=== PATIENT | male | born 1940 | race Caucasian/White ===

== ENCOUNTER 2016-06-23 08:54 | Day surgery (SDC) | payer OTHER, MEDICARE ==
[2016-06-23] MEDS ORDERED: LIDOCAINE 1% 5 ML SDV ONE (09:19)
[2016-06-23] MEDS ORDERED: LIDOCAINE 2% 5 ML SDV ONE (10:17)
[2016-06-23] MEDS ORDERED: PROPOFOL/EMULSION 500 MG/50 ML BOTTLE IV ONE (10:17)
--- NOTE | 2016-06-23 11:29 | GPN ---
[f rep st] PROCEDURE NOTE PREPROCEDURE DIAGNOSIS: Need for screening colonoscopy. POSTPROCEDURE DIAGNOSIS: 1. Mild to moderate left-sided diverticulosis. 2. Colon polyps, status post removal. PROCEDURES: Colonoscopy with biopsies. MEDICATIONS: Monitored anesthesia care. INDICATIONS: The patient is a 76-year-old gentleman with a history of aortic stenosis and pacemaker , who presents for a colonoscopy for screening purposes. His last colonoscopy was 20 years ago. Th e risks and benefits of the procedure were discussed with the patient and consent obtained. Risks i nclude, but not limited to, bleeding, perforation, risks associated with sedation. The patient is A SA class 3. DESCRIPTION OF PROCEDURE: The pediatric colonoscope was advanced into the terminal ileum, which cynthia eared normal. The ileocecal valve, cecum, ascending colon, hepatic flexure, transverse colon, splen ic flexure appeared normal. There was mild to moderate diverticulosis in the descending colon and s igmoid colon. There was a 2 mm polyp in the descending colon, which was removed using cold biopsy f orceps and sent to pathology. The rectum shows a 2 mm polyp, which was also removed using cold biop sy forceps and sent off to pathology. Retroflexed views in the rectum were normal. IMPRESSION: 1. [id number] left-sided diverticulosis. 2. Two small colon polyps, status post removal. RECOMMENDATIONS: 1. Discharge home with escort. 2. Advance diet as tolerated. 3. Follow up the final pathology results. Results available within 10 days. 4. Given the patient's age, I would not recommend repeating screening or surveillance colonoscopy. Thank you for allowing me to participate in the care of your patient. Please do not hesitate to salvador adrien with questions. /[id number]/MODL
== END 2016-06-23 12:00 | disposition home health service (06) ==
LOC: FSGY 08:54
PROVIDERS: ATTEND Internal Medicine Gastroenterology
PROC: 0DBP8ZX Excision of Rectum, Via Natural or Artificial Opening Endoscopic, Diagnostic (ICD-10-PCS; 2016-06-23)
PROC: 0DBM8ZX Excision of Descending Colon, Via Natural or Artificial Opening Endoscopic, Diagnostic (ICD-10-PCS; principal; 2016-06-23 10:30)
DX: Z12.11 Encounter for screening for malignant neoplasm of colon (principal); D12.6 Benign neoplasm of colon, unspecified; K57.30 Diverticulosis of large intestine without perforation or abscess without bleeding; I08.0 Rheumatic disorders of both mitral and aortic valves; Z95.0 Presence of cardiac pacemaker; I49.5 Sick sinus syndrome; I44.2 Atrioventricular block, complete; G47.33 Obstructive sleep apnea (adult) (pediatric); I10 Essential (primary) hypertension; E78.5 Hyperlipidemia, unspecified; N52.9 Male erectile dysfunction, unspecified; Z87.891 Personal history of nicotine dependence; Z86.010 Personal history of colon polyps; Z79.82 Long term (current) use of aspirin
CPT/HCPCS: J2704

== ENCOUNTER → 2017-06-21 | Outpatient (CLI) | payer OTHER, MEDICARE | LOC: BHCLAF 10:00 | PROVIDERS: ATTEND Internal Medicine Cardiovascular Disease | DX: I35.0 Nonrheumatic aortic (valve) stenosis (principal) | CPT/HCPCS: 93306-PO ==

== ENCOUNTER → 2017-07-27 | Outpatient (CLI) | payer OTHER, MEDICARE | LOC: BHLMT 09:00 | PROVIDERS: ATTEND Internal Medicine Cardiovascular Disease | DX: I35.0 Nonrheumatic aortic (valve) stenosis (principal); I10 Essential (primary) hypertension | CPT/HCPCS: 78452; 93017; A9500; J2785 ==

== ENCOUNTER 2017-08-09 09:20 | Emergency (ER) | payer OTHER, MEDICARE ==
[2017-08-09 09:43] VITALS: BP 155/76; PULSE 76; RESP 14; TEMP 98.1; O2SAT 96
--- NOTE | 2017-08-09 09:49 | EDPHY ---
H & P Stated Complaint: foreign body in right ear Time Seen by Provider: 08/09/17 09:45 HPI/ROS: Chief Complaint: Hearing aid part in right ear HPI: 77-year-old male who wears hearing aids has the rubber backing caught in his right ear since yesterday. Also has a history of cerumen takes he might have some ear wax as well. No pain. Some mild decreased hearing. No fevers or chills. No discharge. ROS: 10 point Review of Systems is negative except as noted in the HPI. Social History: No smoking Family History: non-contributory Physical Exam: General: Awake, alert, no acute distress Ears: Left ear is normal, right ear: The rubber portion of his hearing aid is lodged in his ear canal. Behind this there is a moderate cerumen impaction. There is no erythema. There is no discharge. There is no edema. Skin: No rash - Personal History Current Tetanus Diphtheria and Acellular Pertussis (TDAP): Yes Tetanus Vaccine Date: unsure - Medical/Surgical History Hx Asthma: No Hx Chronic Respiratory Disease: No Hx Diabetes: No Hx Cardiac Disease: Yes Hx Renal Disease: No Hx Cirrhosis: No Hx Alcoholism: No Hx HIV/AIDS: No Hx Splenectomy or Spleen Trauma: No Other PMH: aortic stenosis, HTN, appendectomy, sinusitis. pacer, high cholesterol,BPH - Social History Smoking Status: Former smoker Constitutional: Initial Vital Signs Temperature (C) 36.7 C 08/09/17 09:41 Heart Rate 76 08/09/17 09:41 Respiratory Rate 14 08/09/17 09:41 Blood Pressure 155/76 H 08/09/17 09:41 O2 Sat (%) 96 08/09/17 09:41 O2 Delivery Mode Room Air Allergies/Adverse Reactions: No Known Allergies Allergy (Verified 08/09/17 09:38) Home Medications: Medication Instructions Recorded Aspirin [Aspirin 81mg (*)] 81 mg PO DAILY 04/17/14 Cholecalciferol Vit D3 [Vitamin D3 1,000 units PO DAILY 04/17/14 (*)] Cyanocobalamin [Vitamin B12 (*)] 1,000 mcg PO DAILY 04/17/14 Fluticasone Nasal [Flonase Nasal 1 sprays NASAL DAILY 04/17/14 [place]] Herbals/Supplements -Info Only 1 ea PO DAILY 04/17/14 Montelukast Sodium [Singulair 10 10 mg PO DAILY@1800 04/17/14 mg (*)] Nebivolol HCl [Bystolic 5 mg (*)] 10 mg PO DAILY 04/17/14 Sildenafil Citrate [Viagra 50 MG 50 mg PO HS PRN 04/17/14 (*)] Hydrochlorothiazide [HCTZ (*)] 25 mg PO DAILY #30 tab 04/18/14 Crestor 40mg (*) 06/18/16 Finasteride 08/09/17 Zetia 08/09/17 Medical Decision Making Procedures: Procedure: Foreign body removal from right ear. Anesthesia: None required After verbal consent was obtained, the hearing aid part was removed from right ear canal. The foreign body was removed manually with forceps under direct visualization. There were no complications. The procedure was performed by myself. Procedure: Cerumen removal. After a physical exam was performed cerumen needed to be removed from the patient's ear canal. The indication of the procedure was cerumen impaction and inability to complete the ear exam. The procedure was performed with water irrigation. The patient tolerated the procedure well. The procedure was performed by myself. Departure - Departure Disposition: Home, Routine, Self-Care Clinical Impression: Ear foreign body, Cerumen impaction Condition: Good Instructions: Ear Foreign Body (ED), Cerumen Impaction (ED) Additional Instructions: Follow up with primary care physician for any concerns. Referrals: Parth Doty MD [Medical Doctor] - As per Instructions
== END 2017-08-09 10:05 | disposition home or self-care (01) ==
LOC: CED 09:20
PROC: 09C3XZZ Extirpation of Matter from Right External Auditory Canal, External Approach (ICD-10-PCS; principal; 2017-08-09)
PROC: 3E1B78Z Irrigation of Ear using Irrigating Substance, Via Natural or Artificial Opening (ICD-10-PCS; principal; 2017-08-09)
DX: T16.1XXA Foreign body in right ear, initial encounter (principal); H61.21 Impacted cerumen, right ear; I10 Essential (primary) hypertension; Z79.82 Long term (current) use of aspirin; Z87.891 Personal history of nicotine dependence; X58.XXXA Exposure to other specified factors, initial encounter

== ENCOUNTER 2018-04-07 10:36 | Emergency (ER) | payer OTHER, MEDICARE ==
--- NOTE | 2018-04-07 11:09 | EDPHY ---
H & P Stated Complaint: Pt. states last 3 days nml but green stools Time Seen by Provider: 04/07/18 10:59 HPI/ROS: CHIEF COMPLAINT: Green stool HISTORY OF PRESENT ILLNESS: The patient is a 78-year-old man who comes to the emergency depart with his who is here for sinusitis. The patient complains that he has had green stool for the last 5 days ever since he returned home from [facility]. He states that several people on the flight were sick and vomiting. He has not had any nausea or vomiting. He has not had diarrhea. His stool is formed but simply green. No history of biliary disease. No history of liver disease. No abdominal pain. No fevers. No foreign travel. He has not been eating large amounts of green food or vitamins. No blood. Severity: Moderate Modifying factors: None REVIEW OF SYSTEMS: Constitutional: denies: chills, fever, recent illness, recent injury EENTM: denies: blurred vision, double vision, nose congestion Respiratory: denies: cough, shortness of breath Cardiac: denies: chest pain, irregular heart rate, lightheadedness, palpitations Gastrointestinal/Abdominal: See HPI denies: abdominal pain, diarrhea, nausea, vomiting, blood streaked stools Genitourinary: denies: dysuria, frequency, hematuria, pain Musculoskeletal: denies: joint pain, muscle pain Skin: denies: lesions, rash, jaundice, bruising Neurological: denies: headache, numbness, paresthesia, tingling, dizziness, weakness Hematologic/Lymphatic: denies: blood clots, easy bleeding, easy bruising Immunologic/allergic: denies: HIV/AIDS, transplant 10 systems reviewed and negative except as noted EXAM: GENERAL: Well-appearing, well-nourished and in no acute distress. HEAD: Atraumatic, normocephalic. EYES: Pupils equal round and reactive to light, extraocular movements intact, sclera anicteric, conjunctiva are normal. ENT: TMs normal, nares patent, oropharynx clear without exudates. Moist mucous membranes. NECK: Normal range of motion, supple without lymphadenopathy or JVD. LUNGS: Breath sounds clear to auscultation bilaterally and equal. No wheezes rales or rhonchi. HEART: Regular rate and rhythm without murmurs, rubs or gallops. ABDOMEN: Soft, nontender, normoactive bowel sounds. No guarding, no rebound. No masses appreciated. : Rectal exam performed , enlarged prostate, light greenish mucus in stool. No visible bleeding. BACK: No CVA tenderness, no spinal tenderness, step-offs or deformities EXTREMITIES: Normal range of motion, no pitting or edema. No clubbing or cyanosis. NEUROLOGICAL: Cranial nerves II through XII grossly intact. Normal speech, normal gait. 5/5 strength, normal movement in all extremities, normal sensation , normal reflexes PSYCH: Normal mood, normal affect. SKIN: Warm, dry, normal turgor, no visible rashes or lesions. Source: Patient Exam Limitations: No limitations - Personal History Tetanus Vaccine Date: unsure - Medical/Surgical History Hx Asthma: No Hx Chronic Respiratory Disease: No Hx Diabetes: No Hx Cardiac Disease: Yes Hx Renal Disease: No Hx Cirrhosis: No Hx Alcoholism: No Hx HIV/AIDS: No Hx Splenectomy or Spleen Trauma: No Other PMH: aortic stenosis, HTN, appendectomy, sinusitis. pace maker, high cholesterol,BPH - Family History Significant Family History: No pertinent family hx - Social History Smoking Status: Former smoker Alcohol Use: Sober Drug Use: None Constitutional: Initial Vital Signs Temperature (C) 36.7 C 04/07/18 10:50 Heart Rate 64 04/07/18 10:50 Respiratory Rate 16 04/07/18 10:50 Blood Pressure 185/99 H 04/07/18 10:50 O2 Sat (%) 94 04/07/18 10:50 O2 Delivery Mode Room Air Allergies/Adverse Reactions: No Known Allergies Allergy (Verified 04/07/18 10:43) Home Medications: Medication Instructions Recorded Aspirin [Aspirin 81mg (*)] 81 mg PO DAILY 04/17/14 Cholecalciferol Vit D3 [Vitamin D3 1,000 units PO DAILY 04/17/14 (*)] Cyanocobalamin [Vitamin B12 (*)] 1,000 mcg PO DAILY 04/17/14 Fluticasone Nasal [Flonase Nasal 1 sprays NASAL DAILY 04/17/14 [place]] Herbals/Supplements -Info Only 1 ea PO DAILY 04/17/14 Montelukast Sodium [Singulair 10 10 mg PO DAILY@1800 04/17/14 mg (*)] Nebivolol HCl [Bystolic 5 mg (*)] 10 mg PO DAILY 04/17/14 Hydrochlorothiazide [HCTZ (*)] 25 mg PO DAILY #30 tab 04/18/14 Crestor 40mg (*) 06/18/16 Finasteride 08/09/17 Zetia 08/09/17 Medical Decision Making - Diagnostics Imaging Results: Imaging Impressions Abdomen Ultrasound 04/07/18 11:04 Impression: No cholelithiasis or biliary ductal dilation. Findings discussed with Wilfrido Mcgee M.D. at 12:07 hour, 04/07/2018. Imaging: Discussed imaging studies w/ mulcher operator Radiologist ED Course/Re-evaluation: 12:30 p.m. The patient remains asymptomatic. His ultrasound lab workup reassuring. His creatinine is slightly elevated but similar to baseline. I will refer him to GI. I also recommended he follow up with Dr. Doty in the next few days. If his green stool does not resolve he may require CT scanning or further workup. No pancreatic or biliary disease seen on today's ultrasound. Lab work is also normal. We also discussed indications for returning such as development of abdominal pain or fever. Differential Diagnosis: Partial list of the Differential diagnosis considered include but were not limited to; biliary disease, dietary supplementation and although unlikely based on the history and physical exam, I also considered liver disease, pancreatic cancer, obstruction. I discussed these differential diagnoses and the plan with the patient as well as the usual and expected course. The patient understands that the diagnosis is provisional and that in medicine we are not always correct and that further workup is often warranted. Usual and customary warnings were given. All of the patient's questions were answered. The patient was instructed to return to the emergency department should the symptoms at all worsen or return, otherwise to followup with the physician as we discussed. - Data Points Point of Care Test Results: CBC CBC Collection Date 04/07/18 CBC Collection Time 11:50 WBC 7.3 RBC 4.80 HGB 15.7 HCT 44.1 PLT 146 Neut # 5.1 Neut 69.8 LYMPH # 1.6 LYMPH 21.5 Other WBC # 0.6 Other WBC 8.7 MCV 91.9 Comprehensive Metabolic Panel CMP Collection Date 04/07/18 CMP Collection Time 11:50 Sodium 142 Potassium 4.2 Chloride 108 TCO2 27 Glucose 100 BUN 12 Creatinine 1.5 Calcium 10.0 Total Protein 7.2 Albumin 3.9 Alkaline Phosphatase 59 ALT 52 AST 42 Total Bilirubin 0.9 Basic Metabolic Panel Chloride 108 Creatinine 1.5 Occult Blood Occult Blood Collection Date 04/07/18 Occult Blood Collection Time 11:10 Occult Blood Result Negative/Negative Departure - Departure Disposition: Home, Routine, Self-Care Clinical Impression: Green stool Condition: Fair Instructions: High Fiber Diet (ED) Additional Instructions: Follow-up with Dr. Martinez for further workup if her symptoms are not resolving. Return to the emergency department if you develop pain or a fever. Referrals: Parth Doty MD [Primary Care Provider] - 2-3 days, call for appt. Antonio Garay MD [Medical Doctor] - 5-7 days, if not improved
[2018-04-07 12:59] VITALS: BP 137/98
== END 2018-04-07 12:45 | disposition home or self-care (01) ==
LOC: CED 10:36
DX: R19.5 Other fecal abnormalities (principal); I10 Essential (primary) hypertension; Z90.49 Acquired absence of other specified parts of digestive tract; Z95.0 Presence of cardiac pacemaker
CPT/HCPCS: 76705-PO